=== PATIENT | male | born 1975 | race Two or more races ===

== ENCOUNTER 2016-12-21 12:36 | Emergency (ER) | payer OTHER ==
[2016-12-21 13:28] LABS: ABSOLUTE NEUTROPHIL COUNT 5.4 K/mm3 (1.8-7.7); BASO % 0.4 % (0.2-1.0); EOS # 0.2 (0.0-0.5); EOS % 2.2 % (0.9-2.9); HEMATOCRIT 40.7 % (32.0-52.0); HEMOGLOBIN 13.9 gm/l (14.0-18.0); IMM NEUT% 0.2 % (0-1); LYMPH % 24.8 % (15-45); MEAN CELL VOLUME 86.4 fl (80.0-94.0); MEAN CORPUSCULAR HEMOGLOBIN 29.5 pg (27.0-31.0); MEAN CORPUSCULAR HGB CONC 34.2 g/dl (33.0-37.0); MEAN PLATELET VOLUME 10.9 fl (7.4-10.4); MONO # 0.6 (0.0-0.8); MONO % 6.7 % (4-12); NEUT % 65.7 % (43-75); PLATELET COUNT 257 K/mm3 (130-400); RED CELL DISTRIBUTION WIDTH 11.3 % (11.5-14.5)
[2016-12-21 13:38] LABS: CALCIUM 9.2 mg/dL (8.6-10.3)
--- NOTE | 2016-12-21 13:50 | RAD ---
CHEST - 2 VIEWS COMPARISON: None. HISTORY: Chest pain for 5 days. The pain was worse this morning. FINDINGS: Views: Frontal and lateral chest Lungs: 6.3 mm nodule, lateral right lung base. Heart and vessels: Normal Trachea and bronchi: Normal Mediastinum and olga: Normal Costophrenic sulci: Normal Chest wall and bones: Normal. Upper abdomen: Normal. IMPRESSION: No acute finding. In the lateral right lung base, 6.3 mm nodule. Recommendation: Obtain prior chest x-ray versus nonemergent CT of the chest.
[2016-12-21] MEDS ORDERED: IBUPROFEN 600 MG TABLET ONE (14:15)
[2016-12-21] MEDS ORDERED: ACETAMINOPHEN 325 MG TABLET ONE (14:15)
== END 2016-12-21 14:28 | disposition home or self-care (01) ==
LOC: ED 12:36
DX: R07.9 Chest pain, unspecified (principal); R91.1 Solitary pulmonary nodule
CPT/HCPCS: 85025; 80048; 84484; 71020; 99283; 93005; 99284; A9270 ×2